=== PATIENT | male | born 1990 | race Two or more races ===

== ENCOUNTER 2016-07-22 19:46 | Emergency (ER) | payer BC, MEDICAID ==
[~2016-07-22] VITALS: Ht 188 cm; Wt 92.5 kg
[2016-07-22 20:14] VITALS: BP 138/92
== END 2016-07-22 20:50 | disposition left against medical advice (07) ==
LOC: ER 19:49
DX: S01.552A Open bite of oral cavity, initial encounter (principal); Z53.21 Procedure and treatment not carried out due to patient leaving prior to being seen by health care provider; W54.0XXA Bitten by dog, initial encounter; Y93.89 Activity, other specified; Y99.8 Other external cause status; Y92.89 Other specified places as the place of occurrence of the external cause

== ENCOUNTER 2016-07-23 12:52 | Emergency (ER) | payer MEDICAID ==
[~2016-07-23] VITALS: Ht 185.4 cm; Wt 91.6 kg
[2016-07-23 13:34] VITALS: BP 133/95
== END 2016-07-23 13:40 | disposition home or self-care (01) ==
LOC: ER 13:06
DX: S00.511A Abrasion of lip, initial encounter (principal); F17.210 Nicotine dependence, cigarettes, uncomplicated; W54.0XXA Bitten by dog, initial encounter; Y93.89 Activity, other specified; Y99.8 Other external cause status; Y92.89 Other specified places as the place of occurrence of the external cause